=== PATIENT | male | born 1950 | race Caucasian/White ===

== ENCOUNTER 2017-07-01 09:37 | Emergency (ER) | payer BC, MEDICARE ==
[2017-07-01 09:42] VITALS: TEMP 98.1
[2017-07-01] MEDS ORDERED: PANTOPRAZOLE 40 MG/10 ML VIAL IVP STA (09:48)
[2017-07-01] MEDS ORDERED: SODIUM CHLORIDE 0.9% 1,000 ML IV STA (09:48)
[2017-07-01] MEDS ORDERED: SODIUM CHLORIDE 0.9% 500 ML IV STA ×2 (09:48→11:27)
[2017-07-01 10:27] LABS: Basophils % (A) 0 %; CH 32.3; CHCM 36.7; Eosinophils % (A) 1 %; HCT 43.4 % (39.0-53.0); HDW 2.42; HGB 15.2 gm/dL (13.0-17.5); Luc # (Auto) 0.29; Luc % (Auto) 4; Lymphocytes # (A) 0.8 k/uL (1.0-4.8); Lymphocytes % (A) 11 %; MCV 88.5 fL (80.0-100.0); Mean Platelet Volume 6.7; Monocytes # (A) 0.7 k/uL (0-1.0); Monocytes % (A) 9 %; Neutrophils # (A) 5.2 k/uL (1.3-7.7); Neutrophils % (A) 75 %; RBC 4.91 m/uL (4.30-5.90); RDW 13.7 % (11.5-15.5); WBC (Perox) 7.11
[2017-07-01 10:36] LABS: ALT 38 U/L (21-72); AST 37 U/L (17-59); Alkaline Phosphatase 63 U/L (38-126); Anion Gap 15 mmol/L; Blood Urea Nitrogen 6 mg/dL (9-20); Calcium 9.3 mg/dL (8.4-10.2); Carbon Dioxide 18 mmol/L (22-30); Chloride 89 mmol/L (98-107); Glucose 88 mg/dL (74-99); Magnesium 1.6 mg/dL (1.6-2.3); Non-African American GFR(MDRD) >60 (>60 ml/min/1.73 sqM); Sodium 122 mmol/L (137-145); Total Bilirubin 0.7 mg/dL (0.2-1.3)
--- NOTE | 2017-07-01 10:40 | XR ---
EXAMINATION TYPE: XR abdomen acute w cxr DATE OF EXAM: 07/01/2017 CLINICAL HISTORY: Bloody stools and lower abdominal pain. TECHNIQUE: Single frontal view of chest is obtained. Supine and upright views of the abdomen are acq uired. COMPARISON: Chest x-ray May 28, 2009. FINDINGS: There is chronic parenchymal change with patchy bibasilar linear scarring or atelectasis. T here is no new suspicious focal airspace opacity, pleural effusion or pneumothorax. Cardiac silhouet te size appears within normal limits. Nodularity left lung apex favored scattered calcified granuloma s. Vascular calcification right axillary region is seen. Osseous structures are intact. Gas is noted in nondistended stomach and scattered predominantly colonic loops. Some paucity of small bowel gas is felt present. Vascular calcification lower abdomen and pelvis is noted. Moderate joint space loss in both hips is seen. No pneumoperitoneum is present.. IMPRESSION: 1. Chronic changes without suspicious acute pulmonary process. 2. Overall nonspecific but likely nonobstructive bowel gas pattern.
[2017-07-01 10:41] LABS: Partial Thromboplastin Time 28.4 sec (22.0-30.0); Prothrombin Time 10.3 sec (9.0-12.0)
[2017-07-01 10:50] LABS: Creatine Kinase 75 U/L (55-170)
[2017-07-01 11:03] LABS: Creatine Kinase MB 2.1 ng/mL (0.0-2.4); Troponin I <0.012 ng/mL (0.000-0.034)
--- NOTE | 2017-07-01 11:09 | ED ---
General Adult HPI - General Chief complaint: GI Bleed Stated complaint: dark stool/blood Time Seen by Provider: 07/01/17 09:48 Source: patient, RN notes reviewed, old records reviewed Mode of arrival: ambulatory Limitations: no limitations - History of Present Illness Initial comments: This is a 67-year-old male to the ER for evaluation of decreased bowel movements 5 days and dark stools 5 days ago. Patient thinks he may be having some GI bleeding. Denies abdominal pain but admits to some increasing abdominal distention, no fevers no nausea vomiting. No history of bowel surgery. No blood thinners. Does have prior colonoscopy history of which isn' t not been an issue. Patient did attempt taking Colace with no help - Related Data Home Medications Medication Instructions Recorded Confirmed Aspirin 81 mg PO HS 07/20/14 07/01/17 Atenolol 100 mg PO BID 07/20/14 07/01/17 Enalapril [Vasotec] 20 mg PO BID 07/20/14 07/01/17 Simvastatin [Zocor] 20 mg PO HS 07/20/14 07/01/17 hydrALAZINE HCL [Apresoline] 25 mg PO BID 07/20/14 07/01/17 Allergies Allergy/AdvReac Type Severity Reaction Status Date / Time No Known Allergies Allergy Verified 07/01/17 09:59 Review of Systems ROS Statement: Those systems with pertinent positive or pertinent negative responses have been documented in the HPI. ROS Other: All systems not noted in ROS Statement are negative. Past Medical History Past Medical History: CVA/TIA, GERD/Reflux, Hyperlipidemia, Hypertension, Skin Disorder Additional Past Medical History / Comment(s): ROSACEA,CURRECTLY HAVING DIFFICULTY SWALLOWING History of Any Multi-Drug Resistant Organisms: None Reported Past Surgical History: Tonsillectomy Additional Past Surgical History / Comment(s): KATRIN CAROTID ENDARTECTOMY, procedures to esophagus Past Anesthesia/Blood Transfusion Reactions: No Reported Reaction Past Psychological History: No Psychological Hx Reported Smoking Status: Former smoker Past Alcohol Use History: Daily Past Drug Use History: None Reported General Exam Limitations: no limitations General appearance: alert, in no apparent distress Head exam: Present: atraumatic, normocephalic, normal inspection Eye exam: Present: normal appearance, PERRL, EOMI. Absent: scleral icterus, conjunctival injection, periorbital swelling ENT exam: Present: normal exam, mucous membranes moist Neck exam: Present: normal inspection. Absent: tenderness, meningismus, lymphadenopathy Respiratory exam: Present: normal lung sounds bilaterally. Absent: respiratory distress, wheezes, rales, rhonchi, stridor Cardiovascular Exam: Present: regular rate, normal rhythm, normal heart sounds. Absent: systolic murmur, diastolic murmur, rubs, gallop, clicks GI/Abdominal exam: Present: soft, normal bowel sounds. Absent: distended, tenderness, guarding, rebound, rigid Extremities exam: Present: normal inspection, full ROM, normal capillary refill. Absent: tenderness, pedal edema, joint swelling, calf tenderness Back exam: Present: normal inspection Neurological exam: Present: alert, oriented X3, CN II-XII intact Psychiatric exam: Present: normal affect, normal mood Skin exam: Present: warm, dry, intact, normal color. Absent: rash Course Vital Signs 07/01/17 07/01/17 07/01/17 09:39 09:54 11:16 Temperature 98.1 F Pulse Rate 78 76 71 Respiratory 20 18 18 Rate Blood Pressure 234/105 194/98 185/96 O2 Sat by Pulse 99 98 99 Oximetry - Reevaluation(s) Reevaluation #1: 07/01/17 11:41 Patient still without abdominal pain. Reevaluation #2: 07/01/17 11:41 The patient at length regarding symptoms, patient states at this point he would like to be discharged on Lortab bowel movement at all Medical Decision Making - Medical Decision Making 67 the ER for evaluation. Patient has a for evaluation regarding constipation or GI bleed. History of alcoholism L mild hyponatremia and dehydration. Patient given hydration here in the emergency room, given GI regimen. Otherwise patient without complaint and will be discharged home - Lab Data Result diagrams: 07/01/17 10:10 07/01/17 10:10 Lab Results 07/01/17 07/01/17 07/01/17 Range/Units 10:10 10:10 10:10 WBC 7.0 (3.8-10.6) k/uL RBC 4.91 (4.30-5.90) m/uL Hgb 15.2 (13.0-17.5) gm/dL Hct 43.4 (39.0-53.0) % MCV 88.5 (80.0-100.0) fL MCH 31.0 (25.0-35.0) pg MCHC 35.0 (31.0-37.0) g/dL RDW 13.7 (11.5-15.5) % Plt Count 249 (150-450) k/uL Neutrophils % 75 % Lymphocytes % 11 % Monocytes % 9 % Eosinophils % 1 % Basophils % 0 % Neutrophils # 5.2 (1.3-7.7) k/uL Lymphocytes # 0.8 L (1.0-4.8) k/uL Monocytes # 0.7 (0-1.0) k/uL Eosinophils # 0.0 (0-0.7) k/uL Basophils # 0.0 (0-0.2) k/uL PT (9.0-12.0) sec INR (<1.2) APTT (22.0-30.0) sec Sodium 122 L (137-145) mmol/L Potassium 5.0 (3.5-5.1) mmol/L Chloride 89 L (98-107) mmol/L Carbon Dioxide 18 L (22-30) mmol/L Anion Gap 15 mmol/L BUN 6 L (9-20) mg/dL Creatinine 0.65 L (0.66-1.25) mg/dL Est GFR (MDRD) Af Amer >60 (>60 ml/min/1.73 sqM) Est GFR (MDRD) Non-Af >60 (>60 ml/min/1.73 sqM) Glucose 88 (74-99) mg/dL Calcium 9.3 (8.4-10.2) mg/dL Magnesium 1.6 (1.6-2.3) mg/dL Total Bilirubin 0.7 (0.2-1.3) mg/dL AST 37 (17-59) U/L ALT 38 (21-72) U/L Alkaline Phosphatase 63 (38-126) U/L Total Creatine Kinase 75 (55-170) U/L CK-MB (CK-2) 2.1 (0.0-2.4) ng/mL CK-MB (CK-2) Rel Index 2.8 Troponin I <0.012 (0.000-0.034) ng/mL Total Protein 8.0 (6.3-8.2) g/dL Albumin 4.8 (3.5-5.0) g/dL Lipase 102 (23-300) U/L 07/01/17 Range/Units 10:10 WBC (3.8-10.6) k/uL RBC (4.30-5.90) m/uL Hgb (13.0-17.5) gm/dL Hct (39.0-53.0) % MCV (80.0-100.0) fL MCH (25.0-35.0) pg MCHC (31.0-37.0) g/dL RDW (11.5-15.5) % Plt Count (150-450) k/uL Neutrophils % % Lymphocytes % % Monocytes % % Eosinophils % % Basophils % % Neutrophils # (1.3-7.7) k/uL Lymphocytes # (1.0-4.8) k/uL Monocytes # (0-1.0) k/uL Eosinophils # (0-0.7) k/uL Basophils # (0-0.2) k/uL PT 10.3 (9.0-12.0) sec INR 1.0 (<1.2) APTT 28.4 (22.0-30.0) sec Sodium (137-145) mmol/L Potassium (3.5-5.1) mmol/L Chloride (98-107) mmol/L Carbon Dioxide (22-30) mmol/L Anion Gap mmol/L BUN (9-20) mg/dL Creatinine (0.66-1.25) mg/dL Est GFR (MDRD) Af Amer (>60 ml/min/1.73 sqM) Est GFR (MDRD) Non-Af (>60 ml/min/1.73 sqM) Glucose (74-99) mg/dL Calcium (8.4-10.2) mg/dL Magnesium (1.6-2.3) mg/dL Total Bilirubin (0.2-1.3) mg/dL AST (17-59) U/L ALT (21-72) U/L Alkaline Phosphatase (38-126) U/L Total Creatine Kinase (55-170) U/L CK-MB (CK-2) (0.0-2.4) ng/mL CK-MB (CK-2) Rel Index Troponin I (0.000-0.034) ng/mL Total Protein (6.3-8.2) g/dL Albumin (3.5-5.0) g/dL Lipase (23-300) U/L - Radiology Data Radiology results: report reviewed (X-ray shows nonspecific bowel gas pattern,) , image reviewed Disposition Clinical Impression: Hyponatremia, Constipation Disposition: HOME SELF-CARE Condition: Good Referrals: Jc Stroud DO [Primary Care Provider] - 1-2 days
[2017-07-01] MEDS ORDERED: ONDANSETRON 4 MG/2 ML VIAL IVP STA (11:27)
[2017-07-01] MEDS ORDERED: SENNOSIDES-DOCUSATE SODIUM 1 EACH TAB PO STA (11:27)
[2017-07-01] MEDS ORDERED: MAGNESIUM CITRATE 296 ML BOTTLE PO ONE (11:27)
[2017-07-01] MEDS ORDERED: LORazepam 2 MG/ML SYRINGE IV STA (11:27)
[2017-07-01] MEDS ORDERED: MAGNESIUM CITRATE 296 ML BOTTLE ONE (11:48)
[2017-07-01] MEDS ORDERED: SENNOSIDES-DOCUSATE SODIUM 1 EACH TAB PO ONE (12:00)
--- NOTE | 2017-07-01 12:20 | ED ---
Medical Decision Making - Lab Data Result diagrams: 07/01/17 10:10 07/01/17 10:10 Lab Results 07/01/17 07/01/17 07/01/17 Range/Units 10:10 10:10 10:10 WBC 7.0 (3.8-10.6) k/uL RBC 4.91 (4.30-5.90) m/uL Hgb 15.2 (13.0-17.5) gm/dL Hct 43.4 (39.0-53.0) % MCV 88.5 (80.0-100.0) fL MCH 31.0 (25.0-35.0) pg MCHC 35.0 (31.0-37.0) g/dL RDW 13.7 (11.5-15.5) % Plt Count 249 (150-450) k/uL Neutrophils % 75 % Lymphocytes % 11 % Monocytes % 9 % Eosinophils % 1 % Basophils % 0 % Neutrophils # 5.2 (1.3-7.7) k/uL Lymphocytes # 0.8 L (1.0-4.8) k/uL Monocytes # 0.7 (0-1.0) k/uL Eosinophils # 0.0 (0-0.7) k/uL Basophils # 0.0 (0-0.2) k/uL PT (9.0-12.0) sec INR (<1.2) APTT (22.0-30.0) sec Sodium 122 L (137-145) mmol/L Potassium 5.0 (3.5-5.1) mmol/L Chloride 89 L (98-107) mmol/L Carbon Dioxide 18 L (22-30) mmol/L Anion Gap 15 mmol/L BUN 6 L (9-20) mg/dL Creatinine 0.65 L (0.66-1.25) mg/dL Est GFR (MDRD) Af Amer >60 (>60 ml/min/1.73 sqM) Est GFR (MDRD) Non-Af >60 (>60 ml/min/1.73 sqM) Glucose 88 (74-99) mg/dL Calcium 9.3 (8.4-10.2) mg/dL Magnesium 1.6 (1.6-2.3) mg/dL Total Bilirubin 0.7 (0.2-1.3) mg/dL AST 37 (17-59) U/L ALT 38 (21-72) U/L Alkaline Phosphatase 63 (38-126) U/L Total Creatine Kinase 75 (55-170) U/L CK-MB (CK-2) 2.1 (0.0-2.4) ng/mL CK-MB (CK-2) Rel Index 2.8 Troponin I <0.012 (0.000-0.034) ng/mL Total Protein 8.0 (6.3-8.2) g/dL Albumin 4.8 (3.5-5.0) g/dL Lipase 102 (23-300) U/L Blood Type Blood Type Recheck Antibody Screen Spec Expiration Date 07/01/17 07/01/17 Range/Units 10:10 10:10 WBC (3.8-10.6) k/uL RBC (4.30-5.90) m/uL Hgb (13.0-17.5) gm/dL Hct (39.0-53.0) % MCV (80.0-100.0) fL MCH (25.0-35.0) pg MCHC (31.0-37.0) g/dL RDW (11.5-15.5) % Plt Count (150-450) k/uL Neutrophils % % Lymphocytes % % Monocytes % % Eosinophils % % Basophils % % Neutrophils # (1.3-7.7) k/uL Lymphocytes # (1.0-4.8) k/uL Monocytes # (0-1.0) k/uL Eosinophils # (0-0.7) k/uL Basophils # (0-0.2) k/uL PT 10.3 (9.0-12.0) sec INR 1.0 (<1.2) APTT 28.4 (22.0-30.0) sec Sodium (137-145) mmol/L Potassium (3.5-5.1) mmol/L Chloride (98-107) mmol/L Carbon Dioxide (22-30) mmol/L Anion Gap mmol/L BUN (9-20) mg/dL Creatinine (0.66-1.25) mg/dL Est GFR (MDRD) Af Amer (>60 ml/min/1.73 sqM) Est GFR (MDRD) Non-Af (>60 ml/min/1.73 sqM) Glucose (74-99) mg/dL Calcium (8.4-10.2) mg/dL Magnesium (1.6-2.3) mg/dL Total Bilirubin (0.2-1.3) mg/dL AST (17-59) U/L ALT (21-72) U/L Alkaline Phosphatase (38-126) U/L Total Creatine Kinase (55-170) U/L CK-MB (CK-2) (0.0-2.4) ng/mL CK-MB (CK-2) Rel Index Troponin I (0.000-0.034) ng/mL Total Protein (6.3-8.2) g/dL Albumin (3.5-5.0) g/dL Lipase (23-300) U/L Blood Type A Positive Blood Type Recheck CABO Indicated Antibody Screen NEGATIVE Spec Expiration Date 07/04/2017 - 2310 Disposition Clinical Impression: Hyponatremia, Constipation Disposition: HOME SELF-CARE Condition: Good Instructions: Constipation (ED), Gastrointestinal Bleeding (ED) Referrals: Jc Stroud DO [Primary Care Provider] - 1-2 days
[2017-07-01 14:11] VITALS: BP 172/91; PULSE 71
[2017-07-01 14:15] VITALS: RESP 20
== END 2017-07-01 12:31 | disposition home or self-care (01) ==
LOC: EC 09:37
DX: K59.00 Constipation, unspecified (principal); E87.1 Hypo-osmolality and hyponatremia; K21.9 Gastro-esophageal reflux disease without esophagitis; E78.5 Hyperlipidemia, unspecified; I10 Essential (primary) hypertension; Z86.73 Personal history of transient ischemic attack (TIA), and cerebral infarction without residual deficits; Z87.891 Personal history of nicotine dependence; Z79.82 Long term (current) use of aspirin; Z79.899 Other long term (current) drug therapy
CPT/HCPCS: 36415; 86900; 86901; 80053; 82550; 82553; 83690; 83735; 84484; 85025; 85610; 85730; 86850; 74022; 99285; 96374; 96361; C9113

== ENCOUNTER 2018-03-30 15:03 | Emergency (ER) | payer MEDICARE ==
[2018-03-30 15:16] VITALS: RESP 18
[2018-03-30] MEDS ORDERED: GLUCAGON 1 MG/ML VIAL IVP STA (15:24)
[2018-03-30] MEDS ORDERED: LORazepam 2 MG/ML INJ IV STA (15:24)
[2018-03-30] MEDS ORDERED: SODIUM CHLORIDE 0.9% 500 ML IV ONE (15:24)
--- NOTE | 2018-03-30 15:26 | ED ---
General Adult HPI - General Chief complaint: Skin/Abscess/Foreign Body Stated complaint: Cannot Swallow Time Seen by Provider: 03/30/18 15:18 Source: patient, RN notes reviewed, old records reviewed Mode of arrival: ambulatory Limitations: no limitations - History of Present Illness Initial comments: 68-year-old male presents with esophageal foreign body. Patient states this morning approximately 5 hours prior to arrival patient was eating some ham and he cut a piece stuck in his esophagus. He's had this many times in the past. He has had esophageal dilatation approximately one year ago for esophageal stricture. States he's had some increase in difficulty swallowing but has not had any foreign bodies lodged recently. He is attempted to drink soda with no improvement. Denies any significant pain. Denies difficulty breathing. - Related Data Home Medications Medication Instructions Recorded Confirmed Aspirin 81 mg PO HS 07/20/14 03/30/18 Atenolol 100 mg PO BID 07/20/14 03/30/18 Enalapril [Vasotec] 20 mg PO BID 07/20/14 03/30/18 Simvastatin [Zocor] 20 mg PO HS 07/20/14 03/30/18 hydrALAZINE HCL [Apresoline] 25 mg PO BID 07/20/14 03/30/18 Allergies Allergy/AdvReac Type Severity Reaction Status Date / Time No Known Allergies Allergy Verified 03/30/18 15:36 Review of Systems ROS Statement: Those systems with pertinent positive or pertinent negative responses have been documented in the HPI. ROS Other: All systems not noted in ROS Statement are negative. Past Medical History Past Medical History: CVA/TIA, GERD/Reflux, Hyperlipidemia, Hypertension, Skin Disorder Additional Past Medical History / Comment(s): ROSACEA,CURRECTLY HAVING DIFFICULTY SWALLOWING History of Any Multi-Drug Resistant Organisms: None Reported Past Surgical History: Tonsillectomy Additional Past Surgical History / Comment(s): KATRIN CAROTID ENDARTECTOMY, procedures to esophagus Past Anesthesia/Blood Transfusion Reactions: No Reported Reaction Past Psychological History: Anxiety Smoking Status: Former smoker Past Alcohol Use History: Daily Past Drug Use History: None Reported General Exam Limitations: no limitations General appearance: alert, in no apparent distress Head exam: Present: atraumatic, normocephalic Eye exam: Present: normal appearance, PERRL ENT exam: Present: normal exam, normal oropharynx Neck exam: Present: normal inspection. Absent: tenderness, meningismus Respiratory exam: Present: normal lung sounds bilaterally. Absent: respiratory distress, stridor Cardiovascular Exam: Present: regular rate, normal rhythm GI/Abdominal exam: Present: soft. Absent: distended, tenderness Extremities exam: Present: normal inspection, normal capillary refill. Absent: pedal edema Back exam: Present: normal inspection, full ROM, tenderness Neurological exam: Present: alert, oriented X3, CN II-XII intact. Absent: motor sensory deficit Psychiatric exam: Present: normal affect, normal mood Skin exam: Present: warm, dry, intact. Absent: cyanosis, diaphoretic Course Vital Signs 03/30/18 15:13 Temperature 98.1 F Pulse Rate 81 Respiratory 18 Rate Blood Pressure 195/106 O2 Sat by Pulse 96 Oximetry Medical Decision Making - Medical Decision Making 68-year-old male with esophageal foreign body. History of esophageal issues. IV is established, patient is given glucagon and Ativan. After approximately 40 minutes patient has complete resolution of his symptoms. He is eating ice and drinking water normally. No complaints. He was given Ativan and does have a ride home. He will follow-up with gastroenterology regarding reevaluation of his esophagus. Disposition Clinical Impression: Esophageal foreign body Disposition: HOME SELF-CARE Condition: Good Instructions: Esophageal Foreign Body (ED) Is patient prescribed a controlled substance at d/c from ED?: No Referrals: Jc Stroud DO [Primary Care Provider] - 1-2 days Bucky Rodriguez MD [STAFF PHYSICIAN] - 1-2 days Time of Disposition: 15:58
[2018-03-30 16:30] VITALS: BP 167/91; PULSE 85; TEMP 98
== END 2018-03-30 16:30 | disposition home or self-care (01) ==
LOC: EC 15:03
DX: T18.128A Food in esophagus causing other injury, initial encounter (principal); E78.5 Hyperlipidemia, unspecified; I10 Essential (primary) hypertension; Z86.73 Personal history of transient ischemic attack (TIA), and cerebral infarction without residual deficits; Z79.82 Long term (current) use of aspirin; Z79.899 Other long term (current) drug therapy; Z87.891 Personal history of nicotine dependence
CPT/HCPCS: 99283; 96374; 96375; 96361; J2060; J1610

== ENCOUNTER 2021-03-16 09:48 | Day surgery (SDC) | payer MEDICARE ==
[2021-03-14 12:16] VITALS: BMI 25.5
[~2021-03-16 09:48] MED LIST: LACTATED RINGERS 1,000 ML IV SCH; LIDOCAINE 1% (10MG/ML) FOR IV START INTRADERMA PRN
[2021-03-16 10:28] VITALS: TEMP 97.8
[2021-03-16] MEDS ORDERED: fentaNYL (PF) 50 MCG/ML 2 ML AMP ONE (10:41)
[2021-03-16] MEDS ORDERED: PROPOFOL 10 MG/ML 20 ML VIAL IV ONE (10:41)
[2021-03-16] MEDS ORDERED: GLYCOPYRROLATE 0.2 MG/ML 2 ML VIAL ONE (10:41)
[2021-03-16] MEDS ORDERED: MIDAZOLAM 2 MG/2 ML VIAL ONE (10:41)
[2021-03-16] MEDS ORDERED: IV FLUID CONTINUATION 1,000 ML IV ONE (10:58)
--- NOTE | 2021-03-16 11:00 | P.PCN ---
Date of Procedure: 03/16/21 Procedure(s) Performed: BRIEF HISTORY: Patient is a 71-year-old pleasant male scheduled for an elective colonoscopy as a part of screening for colorectal neoplasia. PROCEDURE PERFORMED: Colonoscopy snare polypectomy. PREOPERATIVE DIAGNOSIS: Screening for colon cancer. IV sedation per Anesthesia. PROCEDURE: After informed consent was obtained, the patient, was brought into the endoscopy unit. IV sedation was administered by Anesthesia under continuous monitoring. Digital rectal examination was normal. Initially the Olympus CF-160 flexible video colonoscope was then inserted in the rectum, gradually advanced into the cecum without any difficulty. Careful examination was performed as the scope was gradually being withdrawn. Ileocecal valve and the appendiceal orifice were visualized and appeared normal. Prep was excellent. Mucosa of the cecum had a 5 mm polyp removed by snare polypectomy. In the transverse colon there was a 7 mm polyp removed by snare polypectomy. Rest of the, ascending colon, transverse colon, descending colon, appeared normal. In the sigmoid colon there was a 5 mm polyp removed by snare polypectomy. Rest of the sigmoid colon, and rectum appeared normal. Retroflexion was performed in the rectum and no lesions were seen. The patient tolerated the procedure well. IMPRESSION: 5 mm cecal polyp status post polypectomy 7 mm transverse colon polyp status post polypectomy 5 mm; sigmoid polyp status post polypectomy RECOMMENDATIONS: Findings of this examination were discussed with the patient as well as his family.. He was advised to follow with the biopsy results. If the biopsies revealed adenoma he can have a repeat colonoscopy in 5 years
[2021-03-16 11:21] VITALS: BP 110/78; PULSE 88; RESP 18
== END 2021-03-16 11:36 | disposition home or self-care (01) ==
LOC: ORWHC2ENDO 09:48
PROVIDERS: ATTEND Internal Medicine Gastroenterology
DX: Z12.11 Encounter for screening for malignant neoplasm of colon (principal); D12.0 Benign neoplasm of cecum; D12.3 Benign neoplasm of transverse colon; D12.5 Benign neoplasm of sigmoid colon; I10 Essential (primary) hypertension; E78.5 Hyperlipidemia, unspecified; K21.9 Gastro-esophageal reflux disease without esophagitis; Z97.2 Presence of dental prosthetic device (complete) (partial); Z79.82 Long term (current) use of aspirin; Z79.899 Other long term (current) drug therapy
CPT/HCPCS: 88305; 45385; J2250; J3010; J2704

== ENCOUNTER 2022-06-23 05:59 | Emergency (ER) | payer MEDICARE ==
[2022-06-23 06:04] VITALS: TEMP 97.6
[2022-06-23] MEDS ORDERED: LORazepam 1 MG TAB PO STA ×2 (06:19→07:38)
[2022-06-23] MEDS ORDERED: ORPHENADRINE 30 MG/ML 2 ML VIAL IVP STA (06:20)
--- NOTE | 2022-06-23 06:24 | ED ---
General Adult HPI - General Chief complaint: Chest Pain Stated complaint: Chest Pain Time Seen by Provider: 06/23/22 06:08 Source: patient, family, RN notes reviewed Mode of arrival: wheelchair Limitations: no limitations - History of Present Illness Initial comments: Patient is a 72-year-old male presenting to the emergency room with complaints of chest pain and increased anxiety over upcoming surgery for esophageal cancer next week. He reports that he had chest pain with without any associated symptoms including any shortness of breath, dizziness, lightheadedness, headaches or diaphoresis. He states that symptoms occurred last evening and have been varying in intensity with the highest intensity 8 out of 10. He did report some relief with sublingual nitro at home. He reports some mild substernal chest pain at this time without any associated symptoms and states that he follows with cardiology regularly without any recent medication adjustments. He states that he previously has taken Xanax or Ativan in the past to help with his anxiety but has not taken any recently. In addition to his CAD history and esophageal cancer he also has past medical history significant for TIA, GERD, peripheral arterial disease, hypertension and hyperlipidemia. - Related Data Home Medications Medication Instructions Recorded Confirmed Aspirin 81 mg PO DAILY 07/20/14 03/16/21 Enalapril [Vasotec] 20 mg PO BID 07/20/14 03/16/21 Simvastatin [Zocor] 20 mg PO DAILY 07/20/14 03/16/21 ALPRAZolam [Xanax] 0.25 mg PO DIRECTED PRN 03/14/21 03/16/21 Cholecalciferol [Vitamin D3 (25 50 mcg PO DAILY 03/14/21 03/16/21 Mcg = 1000 Iu)] Cyanocobalamin (Vitamin B-12) 5,000 mcg PO DAILY 03/14/21 03/16/21 [Vitamin B-12] Sertraline [Zoloft] 50 mg PO DAILY 03/14/21 03/16/21 Sodium 1 gram PO QID 03/14/21 03/16/21 Tamsulosin HCl [Flomax] 0.4 mg PO DAILY 03/14/21 03/16/21 hydrALAZINE HCL 50 mg PO BID 03/14/21 03/16/21 Allergies Allergy/AdvReac Type Severity Reaction Status Date / Time No Known Allergies Allergy Verified 06/23/22 06:04 Review of Systems ROS Statement: Those systems with pertinent positive or pertinent negative responses have been documented in the HPI. ROS Other: All systems not noted in ROS Statement are negative. Past Medical History Past Medical History: Cancer, CVA/TIA, GERD/Reflux, Hyperlipidemia, Hypertension, Skin Disorder, Vascular Disorder Additional Past Medical History / Comment(s): NO RESIDUAL EFFECTS FROM CVA/TIA, HX DIFFICULTY SWALLOWING WITH DILATION OF ESOPHAGUS., SKIN CANCER, STATES HX OF FOOT ULCER WITH RIGHT FEMORAL BYPASS SURGERY AND HE HAS NO FEELING IN RIGHT FOOT., STATES LOW SODIUM -TAKES SUPPLEMENT. History of Any Multi-Drug Resistant Organisms: None Reported Past Surgical History: Tonsillectomy Additional Past Surgical History / Comment(s): KATRIN CAROTID ENDARTECTOMY, EGD WITH DILATION, RIGHT FEMORAL BYPASS Past Anesthesia/Blood Transfusion Reactions: No Reported Reaction Past Psychological History: Anxiety, Depression Smoking Status: Former smoker Past Alcohol Use History: Daily, Heavy Past Drug Use History: Marijuana - Past Family History Father Family Medical History: Cancer Additional Family Medical History / Comment(s): LARYNX & PHARYNX CANCER General Exam Limitations: no limitations General appearance: alert, in no apparent distress Head exam: Present: atraumatic, normocephalic, normal inspection Eye exam: Present: normal appearance, PERRL, EOMI. Absent: scleral icterus, conjunctival injection, periorbital swelling Neck exam: Present: full ROM, other (Significant scar tissue noted to throat unable to palpate thyroid) Respiratory exam: Present: normal lung sounds bilaterally. Absent: respiratory distress, wheezes, rales, rhonchi, stridor Cardiovascular Exam: Present: regular rate, irregular rhythm, normal heart sounds. Absent: systolic murmur, diastolic murmur, rubs, gallop GI/Abdominal exam: Present: soft, normal bowel sounds. Absent: distended, tenderness, guarding, rebound, rigid Extremities exam: Present: normal inspection. Absent: pedal edema, joint swelling Back exam: Present: normal inspection Neurological exam: Present: alert, oriented X3, CN II-XII intact Psychiatric exam: Present: agitated, anxious Skin exam: Present: warm, dry, intact, normal color. Absent: rash Course Vital Signs 06/23/22 06/23/22 06/23/22 06:01 06:20 09:01 Temperature 97.6 F Pulse Rate 95 95 82 Respiratory 16 11 L 18 Rate Blood Pressure 147/88 142/83 O2 Sat by Pulse 97 96 Oximetry - Reevaluation(s) Reevaluation #1: Elevated troponin at 0.053 discussed with patient recommending observation stay for troponin trending in the setting of chest pain presentation along with monitoring of electrolytes. Patient declines admission and would like to leave AGAINST MEDICAL ADVICE. He is willing to stay for electrolyte replacement via IV infusion of sodium chloride and magnesium. Discussed concerns regarding elevate d troponin and chest pain for ACS concern and risk of worsening chest pain worsening cardiac damage and potential for . Patient verbalized understanding and still wishes to leave AGAINST MEDICAL ADVICE. Patient to leave AGAINST MEDICAL ADVICE after completion of IV fluids and IV magnesium. Time: 08:17 Medical Decision Making - Medical Decision Making 72-year-old male presenting to the emergency room with complaints of substernal chest pain which improved with nitroglycerin and known history of CAD with hypertension. Also known history of anxiety. Will workup chest pain with CMP, CBC, troponin, magnesium level along with EKG and chest x-ray. Due to high anxiety levels will give Ativan orally and monitor response. Patient also reports pain might light likely be secondary to neck pain will give Norflex as well. Labs reveal significant electrolyte derangement will give IV magnesium along with sodium bolus and plan for repeat laboratory studies. Still with anxiety after first dose of Xanax will give an additional 0.5 mg. Lab results reveal elevated troponins. Lab findings discussed with patient and as stated and reevaluation area patient does not wish to stay for recommended further evaluation and monitoring. Case discussed with Dr. Peterson. - Lab Data Result diagrams: 06/23/22 06:15 06/23/22 06:15 Lab Results 06/23/22 06/23/22 06/23/22 Range/Units 06:15 06:15 06:15 WBC 10.0 (3.8-10.6) k/uL RBC 4.34 (4.30-5.90) m/uL Hgb 13.4 (13.0-17.5) gm/dL Hct 39.6 (39.0-53.0) % MCV 91.2 (80.0-100.0) fL MCH 30.9 (25.0-35.0) pg MCHC 33.9 (31.0-37.0) g/dL RDW 12.7 (11.5-15.5) % Plt Count 201 (150-450) k/uL MPV 7.0 Neutrophils % 90 % Lymphocytes % 3 % Monocytes % 5 % Eosinophils % 0 % Basophils % 1 % Neutrophils # 9.0 H (1.3-7.7) k/uL Lymphocytes # 0.3 L (1.0-4.8) k/uL Monocytes # 0.5 (0-1.0) k/uL Eosinophils # 0.0 (0-0.7) k/uL Basophils # 0.1 (0-0.2) k/uL PT 10.0 (9.0-12.0) sec INR 0.9 (<1.2) APTT 24.3 (22.0-30.0) sec Sodium 122 L (137-145) mmol/L Potassium 4.4 (3.5-5.1) mmol/L Chloride 82 L (98-107) mmol/L Carbon Dioxide 26 (22-30) mmol/L Anion Gap 14 mmol/L BUN 7 L (9-20) mg/dL Creatinine 0.60 L (0.66-1.25) mg/dL Est GFR (CKD-EPI)AfAm >90 (>60 ml/min/1.73 sqM) Est GFR (CKD-EPI)NonAf >90 (>60 ml/min/1.73 sqM) Glucose 108 H (74-99) mg/dL Calcium 9.6 (8.4-10.2) mg/dL Magnesium 1.1 L (1.6-2.3) mg/dL Total Bilirubin 0.7 (0.2-1.3) mg/dL AST 30 (17-59) U/L ALT 14 (4-49) U/L Alkaline Phosphatase 79 (38-126) U/L Troponin I (0.000-0.034) ng/mL Total Protein 8.4 H (6.3-8.2) g/dL Albumin 4.9 (3.5-5.0) g/dL 06/23/22 Range/Units 06:15 WBC (3.8-10.6) k/uL RBC (4.30-5.90) m/uL Hgb (13.0-17.5) gm/dL Hct (39.0-53.0) % MCV (80.0-100.0) fL MCH (25.0-35.0) pg MCHC (31.0-37.0) g/dL RDW (11.5-15.5) % Plt Count (150-450) k/uL MPV Neutrophils % % Lymphocytes % % Monocytes % % Eosinophils % % Basophils % % Neutrophils # (1.3-7.7) k/uL Lymphocytes # (1.0-4.8) k/uL Monocytes # (0-1.0) k/uL Eosinophils # (0-0.7) k/uL Basophils # (0-0.2) k/uL PT (9.0-12.0) sec INR (<1.2) APTT (22.0-30.0) sec Sodium (137-145) mmol/L Potassium (3.5-5.1) mmol/L Chloride (98-107) mmol/L Carbon Dioxide (22-30) mmol/L Anion Gap mmol/L BUN (9-20) mg/dL Creatinine (0.66-1.25) mg/dL Est GFR (CKD-EPI)AfAm (>60 ml/min/1.73 sqM) Est GFR (CKD-EPI)NonAf (>60 ml/min/1.73 sqM) Glucose (74-99) mg/dL Calcium (8.4-10.2) mg/dL Magnesium (1.6-2.3) mg/dL Total Bilirubin (0.2-1.3) mg/dL AST (17-59) U/L ALT (4-49) U/L Alkaline Phosphatase (38-126) U/L Troponin I 0.053 H* (0.000-0.034) ng/mL Total Protein (6.3-8.2) g/dL Albumin (3.5-5.0) g/dL - EKG Data EKG Comments: Sinus rhythm with sinus arrhythmia with first-degree AV block, ventricular rate 97 bpm, CA interval 230 ms, QRS duration 90 ms, QT/QTC 328/383 ms, CA T axes 47, 51, 40 Disposition Clinical Impression: Chest pain Disposition: Left Against Medical Advice Condition: Undetermined Referrals: Jc Stroud DO [Primary Care Provider] - 1-2 days Time of Disposition: 09:05
[2022-06-23 06:50] LABS: Basophils # (A) 0.1 k/uL (0-0.2); Basophils % (A) 1 %; Eosinophils % (A) 0 %; HCT 39.6 % (39.0-53.0); HGB 13.4 gm/dL (13.0-17.5); Lymphocytes # (A) 0.3 k/uL (1.0-4.8); Lymphocytes % (A) 3 %; MCH 30.9 pg (25.0-35.0); MCHC 33.9 g/dL (31.0-37.0); MCV 91.2 fL (80.0-100.0); Monocytes # (A) 0.5 k/uL (0-1.0); Monocytes % (A) 5 %; Neutrophils % (A) 90 %; Platelet Count 201 k/uL (150-450); RBC 4.34 m/uL (4.30-5.90); RDW 12.7 % (11.5-15.5)
[2022-06-23 07:08] LABS: ALT 14 U/L (4-49); AST 30 U/L (17-59); African American GFR (CKD) >90 (>60 ml/min/1.73 sqM); Albumin 4.9 g/dL (3.5-5.0); Alkaline Phosphatase 79 U/L (38-126); Anion Gap 14 mmol/L; Blood Urea Nitrogen 7 mg/dL (9-20); Calcium 9.6 mg/dL (8.4-10.2); Carbon Dioxide 26 mmol/L (22-30); Chloride 82 mmol/L (98-107); Glucose 108 mg/dL (74-99); Magnesium 1.1 mg/dL (1.6-2.3); Non-African American GFR(CKD) >90 (>60 ml/min/1.73 sqM); Potassium 4.4 mmol/L (3.5-5.1); Sodium 122 mmol/L (137-145); Total Bilirubin 0.7 mg/dL (0.2-1.3); Total Protein 8.4 g/dL (6.3-8.2)
--- NOTE | 2022-06-23 07:26 | XR ---
EXAMINATION TYPE: XR chest 2V DATE OF EXAM: 06/23/2022 7:13 AM COMPARISON: Acute abdominal series 07/01/2017 TECHNIQUE: XR chest 2V Frontal and lateral views of the chest. CLINICAL INDICATION:Male, 72 years old with history of Chest Pain; FINDINGS: Lungs/Pleura: There is flattening of the diaphragm with increased lucency of the lungs. No evidence o f pneumothorax or pleural effusion. Bibasilar atelectasis. Left apical pleural thickening. Pulmonary vascularity: Unremarkable. Heart/mediastinum: Cardiomediastinal silhouette is unremarkable. Atherosclerotic calcifications are seen in the aorta. Additional vascular calcifications of the axillary and subclavian veins. Musculoskeletal: Multiple anterior wedge compression deformities of the thoracic spine most pronounce d along the mid aspect. IMPRESSION: 1. No acute cardiopulmonary disease process. 2. COPD changes. 3. Multiple anterior wedge compression deformities of the thoracic spine. These appear chronic and co rrelation with point tenderness is recommended.
[2022-06-23] MEDS ORDERED: MAGNESIUM SULFATE-D5W PMX 1 GM in DEXTROSE/WATER 1 100ML.BAG IVPB ONE (07:30)
[2022-06-23] MEDS ORDERED: SODIUM CHLORIDE 0.9% 1,000 ML IV STA (07:30)
[2022-06-23 07:41] LABS: INR 0.9 (<1.2); Partial Thromboplastin Time 24.3 sec (22.0-30.0)
[2022-06-23 09:02] VITALS: BP 142/83; PULSE 82; RESP 18
== END 2022-06-23 09:35 | disposition left against medical advice (07) ==
LOC: EC 05:59
DX: R07.9 Chest pain, unspecified (principal); K21.9 Gastro-esophageal reflux disease without esophagitis; E78.5 Hyperlipidemia, unspecified; I10 Essential (primary) hypertension; F41.9 Anxiety disorder, unspecified; F32.A Depression, unspecified; Z87.891 Personal history of nicotine dependence; F12.90 Cannabis use, unspecified, uncomplicated; Z79.82 Long term (current) use of aspirin; Z79.899 Other long term (current) drug therapy; Z53.29 Procedure and treatment not carried out because of patient's decision for other reasons
CPT/HCPCS: 99285; 96375; 96365; 36415; 93005; 80053; 83735; 84484; 85025; 85610; 85730; 71046; J2360; J3475

== ENCOUNTER 2022-09-12 11:22 | Emergency (ER) | payer MEDICARE ==
--- NOTE | 2022-09-12 11:45 | ED ---
General Adult HPI - General Chief complaint: Cardiac Arrest/CPR Stated complaint: Cardiac Arrest Time Seen by Provider: 09/12/22 11:38 Source: EMS Mode of arrival: EMS Limitations: altered mental status - History of Present Illness Initial comments: Patient brought to the ED by EMS in cardiac arrest with CPR in progress. Per EMS, the patient's family called them for a witnessed arrest. Per EMS, the patient was in PEA with agonal respirations when they arrived. EMS was able to establish a right tibial IO line, and they replaced the patient's trach collar with a 7.0 ET tube. Per EMS, the patient has been back and forth between PEA, asystole and ventricular fibrillation since they have been with him. Per EMS, the patient has been given a total of 4 doses of IV epinephrine and has been defibrillated twice by them. Per EMS, the patient's blood glucose was checked and was 89. Patient reportedly has a history of throat cancer and has undergone numerous rounds of chemotherapy and radiation therapy. - Related Data Home Medications Medication Instructions Recorded Confirmed Aspirin 81 mg PO DAILY 07/20/14 03/16/21 Enalapril [Vasotec] 20 mg PO BID 07/20/14 03/16/21 Simvastatin [Zocor] 20 mg PO DAILY 07/20/14 03/16/21 ALPRAZolam [Xanax] 0.25 mg PO DIRECTED PRN 03/14/21 03/16/21 Cholecalciferol [Vitamin D3 (25 50 mcg PO DAILY 03/14/21 03/16/21 Mcg = 1000 Iu)] Cyanocobalamin (Vitamin B-12) 5,000 mcg PO DAILY 03/14/21 03/16/21 [Vitamin B-12] Sertraline [Zoloft] 50 mg PO DAILY 03/14/21 03/16/21 Sodium 1 gram PO QID 03/14/21 03/16/21 Tamsulosin HCl [Flomax] 0.4 mg PO DAILY 03/14/21 03/16/21 hydrALAZINE HCL 50 mg PO BID 03/14/21 03/16/21 Allergies Allergy/AdvReac Type Severity Reaction Status Date / Time No Known Allergies Allergy Verified 06/23/22 06:04 Review of Systems ROS Statement: Those systems with pertinent positive or pertinent negative responses have been documented in the HPI. ROS Other: All systems not noted in ROS Statement are negative. Limitations: ROS unobtainable due to patients medical condition Past Medical History Past Medical History: Cancer, CVA/TIA, GERD/Reflux, Hyperlipidemia, Hypertension, Skin Disorder, Vascular Disorder Additional Past Medical History / Comment(s): NO RESIDUAL EFFECTS FROM CVA/TIA, HX DIFFICULTY SWALLOWING WITH DILATION OF ESOPHAGUS., SKIN CANCER, STATES HX OF FOOT ULCER WITH RIGHT FEMORAL BYPASS SURGERY AND HE HAS NO FEELING IN RIGHT FOOT., STATES LOW SODIUM -TAKES SUPPLEMENT. History of Any Multi-Drug Resistant Organisms: None Reported Past Surgical History: Tonsillectomy Additional Past Surgical History / Comment(s): KATRIN CAROTID ENDARTECTOMY, EGD WITH DILATION, RIGHT FEMORAL BYPASS Past Anesthesia/Blood Transfusion Reactions: No Reported Reaction Past Psychological History: Anxiety, Depression Smoking Status: Former smoker Past Alcohol Use History: Daily, Heavy Past Drug Use History: Marijuana - Past Family History Father Family Medical History: Cancer Additional Family Medical History / Comment(s): LARYNX & PHARYNX CANCER General Exam General appearance: other (GCS = 3; pupils are fixed and round bilaterally) Head exam: Present: atraumatic, normocephalic Eye exam: Present: other (Pupils are fixed and round bilaterally) ENT exam: Present: mucous membranes dry Neck exam: Present: other (Trachea is in midline; tracheostomy with 7.[address] place) Respiratory exam: Present: other (Course breath sounds bilaterally with bagging) Cardiovascular Exam: Present: other (Cool extremities and no palpable pulse without chest compressions) GI/Abdominal exam: Present: soft. Absent: distended Extremities exam: Present: other (Right tibial IO line is in place). Absent: pedal edema Neurological exam: Present: other (GCS = 3; pupils are fixed and round bilaterally) Skin exam: Present: pallor, other (cool) Medical Decision Making - Medical Decision Making ACLS resuscitation was continued on patient's arrival to the ED. Patient's rhythm bounced back and forth between ventricular fibrillation and PEA. Patient received a total of 4 rounds of IV epinephrine (8 in total) and 3 more defibrillations (5 in total) while in the ED. Patient was also treated with IV sodium bicarbonate and IV calcium in the ED. ACLS resuscitation was terminated at 11:37 AM (due to futility of efforts) and patient was pronounced . Patient's family (2 sisters, [id number] and neighbor) were notified of the patient's in the ED. Celeste from the biomedical electronics technician's office was also notified of the patient's , and they have released the patient (release #[id number]). Multiple unsuccessful attempts were made to contact the patient's reported primary care provider, Dr. Jc Hamm with [facility]. Critical Care Time Critical Care Time: Yes Total Critical Care Time: 40 Disposition Clinical Impression: Cardiac arrest Disposition: Is patient prescribed a controlled substance at d/c from ED?: No Referrals: None,Stated [Primary Care Provider] - 1-2 days Time of Disposition: 11:37 () Preliminary Cause of : cardiac arrest
== END 2022-09-12 13:54 | disposition expired ==
LOC: EC 11:22
DX: I46.9 Cardiac arrest, cause unspecified (principal); K21.9 Gastro-esophageal reflux disease without esophagitis; E78.5 Hyperlipidemia, unspecified; I10 Essential (primary) hypertension; Z79.82 Long term (current) use of aspirin; Z87.891 Personal history of nicotine dependence; Z86.73 Personal history of transient ischemic attack (TIA), and cerebral infarction without residual deficits; Z79.899 Other long term (current) drug therapy
CPT/HCPCS: 99291